=== PATIENT | male | born 1940 | race Caucasian/White ===

== ENCOUNTER 2022-05-18 10:16 | Emergency (ER) | payer MEDICARE, BC ==
[2022-05-18 11:20] LABS: #Eosinphils 0.3 10x3/uL (0.0-0.5); #Monocytes 0.6 10x3/uL (0.0-1.1); #Neutrophils 3.5 10x3/uL (1.5-8.4); %Basophils 0.7 % (0.0-2.0); %Eosinophils 4.9 % (0.0-6.0); %Lymphocytes 19.2 % (18.0-47.0); %Monocytes 11.5 % (0.0-10.0); %Neutrophils 63.3 % (40.0-75.0); Hemoglobin 13.1 g/dL (13.5-17.5); Mean Corpuscular Hemoglobin 32.3 pg (27.0-33.0); Mean Corpuscular Volume 94.8 fl (81.2-95.1); Mean Platelet Volume 8.8 fl (7.4-10.4); Platelet Count 187 10x3/uL (150-450); RBC Distribution Width 12.9 % (11.5-14.5); Red Blood Cell (RBC) Count 4.06 10x6/uL (4.32-5.72); White Blood Cell (WBC) Count 5.5 10x3/uL (3.5-10.5)
[2022-05-18 11:26] LABS: ALT (SGPT) 15 U/L (8-55); AST (SGOT) 26 U/L (5-34); Albumin 3.9 g/dL (3.4-4.8); Alkaline Phosphatase 64 U/L (40-110); Anion Gap 9 mmol/L (10-20); BUN (Urea Nitrogen) 11 mg/dL (8.4-25.7); Bilirubin, Total 0.8 mg/dL (0.2-1.2); CK (CPK) 187 U/L (30-200); Calc. Creatinine Clearance 0 mL/min (70-130); Carbon Dioxide 27 mmol/L (23-31); Chloride 103 mmol/L (98-107); Estimated GFR 80; Globulin 2.4 g/dL (2.4-3.5); Glucose 106 mg/dL (83-110); Lipase 6 U/L (8-78); Potassium 4.2 mmol/L (3.5-5.1); Protein, Total 6.3 g/dL (5.8-8.1); Sodium 135 mmol/L (136-145)
[2022-05-18 11:30] LABS: Bilirubin Neg (Negative); Blood, Urine 10 (Negative); Clarity Clear (Clear); Glucose, Urine (Dipstick) Normal (Negative); Ketone, Urine Negative (Negative); Leukocyte Negative (Negative); Nitrite Negative (Negative); Protein, Urine (Dipstick) 15 mg/dl (Neg-Trace); Specific Gravity, Urine 1.025 (1.002-1.036); Urobilinogen Normal mg/dL (Less than 2)
[2022-05-18 11:40] LABS: Bacteria/HPF None Seen HPF (None Seen); RBC/HPF 0-3 HPF (0-3); Squamous Epithelial None Seen HPF (0-3); WBC/HPF None Seen HPF (0-3)
== END 2022-05-18 13:09 | disposition home or self-care (01) ==
LOC: CSHERS 10:16
DX: E86.0 Dehydration (principal); E78.5 Hyperlipidemia, unspecified; Z79.899 Other long term (current) drug therapy
CPT/HCPCS: 74177; 80053; 81003; 81015; 82550; 83605; 83690; 85025; 93005

== ENCOUNTER 2023-08-21 09:14 | Inpatient (IN) | payer MEDICARE, BC ==
[2023-08-21] MEDS ORDERED: Ipratropium Bromide 2.5 ml Neb ONE ×2 (09:46→12:48)
[2023-08-21 09:48] LABS: #Monocytes 0.8 10x3/uL (0.0-1.1); #Neutrophils 6.8 10x3/uL (1.5-8.4); %Basophils 0.2 % (0.0-2.0); %Eosinophils 0.2 % (0.0-6.0); %Lymphocytes 4.9 % (18.0-47.0); %Monocytes 10.4 % (0.0-10.0); %Neutrophils 83.8 % (40.0-75.0); Hematocrit 34.6 % (38.8-50.0); Hemoglobin 12.2 g/dL (13.5-17.5); Mean Corpuscular HGB CONC 35.3 g/dL (32.0-36.0); Mean Corpuscular Hemoglobin 32.2 pg (27.0-33.0); Mean Corpuscular Volume 91.3 fl (81.2-95.1); Mean Platelet Volume 9.2 fl (7.4-10.4); Platelet Count 200 10x3/uL (150-450); RBC Distribution Width 12.9 % (11.5-14.5); Red Blood Cell (RBC) Count 3.79 10x6/uL (4.32-5.72); White Blood Cell (WBC) Count 8.1 10x3/uL (3.5-10.5)
[2023-08-21 10:00] LABS: ALT (SGPT) 22 U/L (8-55); AST (SGOT) 34 U/L (5-34); Albumin 3.9 g/dL (3.4-4.8); Alkaline Phosphatase 59 U/L (40-110); Anion Gap 14 mmol/L (10-20); BUN (Urea Nitrogen) 13 mg/dL (8.4-25.7); Bilirubin, Total 1.4 mg/dL (0.2-1.2); Calc. Creatinine Clearance 0 mL/min (70-130); Calcium 8.5 mg/dL (7.8-10.44); Carbon Dioxide 21 mmol/L (23-31); Chloride 93 mmol/L (98-107); Estimated GFR 87; Globulin 2.8 g/dL (2.4-3.5); Glucose 131 mg/dL (83-110); Potassium 4.2 mmol/L (3.5-5.1); Protein, Total 6.7 g/dL (5.8-8.1); Sodium 124 mmol/L (136-145)
[2023-08-21 10:04] LABS: Troponin I Less than 0.010 ng/mL (< 0.028)
[2023-08-21] MEDS ORDERED: cefTRIAXone (ROCEPHIN) 1 GM VIAL ONE (10:35)
[2023-08-21] MEDS ORDERED: Furosemide 40 MG/4 ML VIAL ONE (10:41)
[2023-08-21] MEDS ORDERED: Ondansetron ODT 4 MG TAB PO PRN (12:24)
[2023-08-21 12:25] LABS: Magnesium 1.5 mg/dL (1.6-2.6)
[2023-08-21] MEDS ORDERED: Azithromycin 500 MG in Sodium Chloride 0.9% 250 ML 250 ML IVPB SCH (12:30)
[2023-08-21] MEDS ORDERED: Magnesium 2 GM/50 ML(in water) 2 GM in Premix 1 BAG IVPB SCH (12:45)
[2023-08-21] MEDS ORDERED: Ondansetron PF 4 MG/2 ML Vial IVP PRN (13:46)
[2023-08-21] MEDS ORDERED: Ondansetron PF 4 MG/2 ML Vial ONE (13:48)
[2023-08-21] MEDS ORDERED: FLU VACC QS2023(65UP)/MF59C/PF 60 MCG/0.5 ML SYRINGE IM ONE (15:00)
[2023-08-21] MEDS ORDERED: Magnesium 2 GM/50 ML BAG (IN WATER) ONE (15:58)
[2023-08-21 16:18] LABS: Anion Gap 13 mmol/L (10-20); BUN (Urea Nitrogen) 13 mg/dL (8.4-25.7); Calc. Creatinine Clearance 74 mL/min (70-130); Calcium 8.6 mg/dL (7.8-10.44); Carbon Dioxide 25 mmol/L (23-31); Chloride 90 mmol/L (98-107); Estimated GFR 86; Glucose 138 mg/dL (83-110); Potassium 3.6 mmol/L (3.5-5.1); Sodium 124 mmol/L (136-145)
[2023-08-21 16:18] LABS: SARS-CoV-2 NAA Rapid Test Not Detected (NotDetected)
[2023-08-21] MEDS ORDERED: Acetaminophen 325 MG TAB ONE (16:26)
[2023-08-21] MEDS: Acetaminophen 325 MG TAB PO PRN (16:29)
[2023-08-21] MEDS ORDERED: Sodium Chloride 0.9% 1,000 ML IV SCH (16:45)
[2023-08-21 17:44] LABS: Bilirubin Neg (Negative); Blood, Urine Negative (Negative); Clarity Clear (Clear); Glucose, Urine (Dipstick) Normal (Negative); Ketone, Urine Negative (Negative); Leukocyte Negative (Negative); Nitrite Negative (Negative); Protein, Urine (Dipstick) Negative (Neg-Trace); Urobilinogen Normal mg/dL (Less than 2)
[2023-08-21 18:16] LABS: Bacteria/HPF Rare-Few HPF (None Seen); CAUTI Indications for Culture Fever or rigors; RBC/HPF None Seen HPF (0-3); Squamous Epithelial None Seen HPF (0-3); WBC/HPF 0-3 HPF (0-3)
[2023-08-21 18:17] LABS: Urine Culture Reflex No No
[2023-08-21] MEDS ORDERED: Azithromycin 500 MG VIAL ONE (18:20)
[2023-08-21] MEDS: Azithromycin 500 MG in Sodium Chloride 0.9% 250 ML 250 ML IVPB SCH (18:26)
[2023-08-21] MEDS: Famotidine 20 MG TAB PO SCH (20:53)
[2023-08-22 04:57] LABS: #Eosinphils 0.1 10x3/uL (0.0-0.5); #Neutrophils 5.1 10x3/uL (1.5-8.4); %Basophils 0.1 % (0.0-2.0); %Eosinophils 1.4 % (0.0-6.0); %Lymphocytes 9.4 % (18.0-47.0); %Monocytes 14.3 % (0.0-10.0); %Neutrophils 74.4 % (40.0-75.0); Hematocrit 32.5 % (38.8-50.0); Hemoglobin 11.5 g/dL (13.5-17.5); Mean Corpuscular HGB CONC 35.4 g/dL (32.0-36.0); Mean Corpuscular Hemoglobin 31.9 pg (27.0-33.0); Mean Platelet Volume 9.4 fl (7.4-10.4); Platelet Count 204 10x3/uL (150-450); RBC Distribution Width 12.7 % (11.5-14.5); Red Blood Cell (RBC) Count 3.61 10x6/uL (4.32-5.72); White Blood Cell (WBC) Count 6.9 10x3/uL (3.5-10.5)
[2023-08-22 05:02] LABS: Anion Gap 11 mmol/L (10-20); BUN (Urea Nitrogen) 15 mg/dL (8.4-25.7); Calc. Creatinine Clearance 74 mL/min (70-130); Calcium 8.4 mg/dL (7.8-10.44); Carbon Dioxide 28 mmol/L (23-31); Cardiac Risk 2.6 (Less than 4.5); Chloride 91 mmol/L (98-107); Cholesterol 113 mg/dl (< 200 Desired); Estimated GFR 87; Glucose 114 mg/dL (83-110); HDL Cholesterol 44 mg/dL (>60 Neg Risk); LDL Cholesterol, Calculated 58 mg/dL; Magnesium 1.9 mg/dL (1.6-2.6); Sodium 126 mmol/L (136-145); Triglycerides 54 mg/dL (Less than 150)
[2023-08-22] MEDS: Famotidine 20 MG TAB PO SCH ×2 (08:58→20:48)
[2023-08-22] MEDS: cefTRIAXone\\ROCEPHIN 1 GM in Sodium Chloride 0.9% 100 ML IVPB SCH (11:30)
[2023-08-22] MEDS: Furosemide 20 MG/2 ML VIAL SLOW IVP SCH (15:15)
[2023-08-22] MEDS: Azithromycin 500 MG in Sodium Chloride 0.9% 250 ML 250 ML IVPB SCH (18:17)
[2023-08-22] MEDS: Ipratropium/Albuterol 3 ML NEB NEB PRN ×2 (18:35→22:49)
[2023-08-22] MEDS ORDERED: Furosemide 20 MG/2 ML VIAL SLOW IVP SCH (19:00)
[2023-08-22] MEDS: Amiodarone 200 MG TAB PO SCH (20:48)
[2023-08-22] MEDS: Apixaban 5 MG TAB PO SCH (20:48)
[2023-08-22] MEDS: Atorvastatin Calcium 10 MG TAB PO SCH (20:48)
[2023-08-22] MEDS: Carvedilol 25 MG TAB PO SCH (20:48)
[2023-08-23] MEDS: Acetaminophen 325 MG TAB PO PRN (00:38)
[2023-08-23 03:57] LABS: #Monocytes 0.9 10x3/uL (0.0-1.1); #Neutrophils 6.5 10x3/uL (1.5-8.4); %Basophils 0.4 % (0.0-2.0); %Eosinophils 0.3 % (0.0-6.0); %Lymphocytes 5.8 % (18.0-47.0); %Monocytes 11.3 % (0.0-10.0); %Neutrophils 81.7 % (40.0-75.0); Hematocrit 31.7 % (38.8-50.0); Hemoglobin 11.2 g/dL (13.5-17.5); Mean Corpuscular HGB CONC 35.3 g/dL (32.0-36.0); Mean Corpuscular Hemoglobin 31.2 pg (27.0-33.0); Mean Corpuscular Volume 88.3 fl (81.2-95.1); Platelet Count 201 10x3/uL (150-450); RBC Distribution Width 12.5 % (11.5-14.5); Red Blood Cell (RBC) Count 3.59 10x6/uL (4.32-5.72); White Blood Cell (WBC) Count 7.9 10x3/uL (3.5-10.5)
[2023-08-23 03:58] LABS: Anion Gap 15 mmol/L (10-20); BUN (Urea Nitrogen) 15 mg/dL (8.4-25.7); Calc. Creatinine Clearance 78 mL/min (70-130); Calcium 8.2 mg/dL (7.8-10.44); Carbon Dioxide 25 mmol/L (23-31); Chloride 86 mmol/L (98-107); Estimated GFR 88; Glucose 126 mg/dL (83-110); Potassium 3.5 mmol/L (3.5-5.1); Sodium 122 mmol/L (136-145)
[2023-08-23] MEDS: Furosemide 20 MG/2 ML VIAL SLOW IVP SCH (06:04)
[2023-08-23] MEDS: Ipratropium/Albuterol 3 ML NEB NEB PRN ×2 (06:50→22:15)
[2023-08-23] MEDS: Apixaban 5 MG TAB PO SCH ×2 (08:16→21:26)
[2023-08-23] MEDS: Empagliflozin 10 MG TAB PO SCH (08:17)
[2023-08-23] MEDS: Carvedilol 25 MG TAB PO SCH ×2 (08:17→21:26)
[2023-08-23] MEDS: Famotidine 20 MG TAB PO SCH ×2 (08:17→21:27)
[2023-08-23] MEDS ORDERED: Tolvaptan 15 MG TAB PO SCH (09:00)
[2023-08-23] MEDS ORDERED: Lisinopril 5 MG TAB PO SCH (09:00)
[2023-08-23] MEDS ORDERED: Valsartan 80 MG TAB PO SCH (09:00)
[2023-08-23] MEDS ORDERED: Sacubitril 24MG/Valsartan 26 MG TAB PO SCH (09:00)
[2023-08-23] MEDS: Sodium Chloride 1 GM TAB PO SCH ×3 (09:54→21:27)
[2023-08-23] MEDS: Spironolactone 25 MG TAB PO SCH (09:54)
[2023-08-23] MEDS: cefTRIAXone\\ROCEPHIN 1 GM in Sodium Chloride 0.9% 100 ML IVPB SCH (11:03)
[2023-08-23] MEDS: Furosemide 40 MG/4 ML VIAL SLOW IVP SCH (15:07)
[2023-08-23 15:22] LABS: Sodium 126 mmol/L (136-145)
[2023-08-23] MEDS: Azithromycin 500 MG in Sodium Chloride 0.9% 250 ML 250 ML IVPB SCH (18:41)
[2023-08-23 21:24] LABS: Sodium 133 mmol/L (136-145)
[2023-08-23] MEDS: Sacubitril 49 MG/Valsartan 51 MG TABLET PO SCH (21:26)
[2023-08-23] MEDS: Atorvastatin Calcium 10 MG TAB PO SCH (21:26)
[2023-08-23] MEDS: Amiodarone 200 MG TAB PO SCH (21:27)
[2023-08-24 03:46] LABS: Anion Gap 13 mmol/L (10-20); BUN (Urea Nitrogen) 25 mg/dL (8.4-25.7); Calc. Creatinine Clearance 72 mL/min (70-130); Calcium 8.7 mg/dL (7.8-10.44); Carbon Dioxide 29 mmol/L (23-31); Chloride 93 mmol/L (98-107); Estimated GFR 85; Glucose 113 mg/dL (83-110); Potassium 3.9 mmol/L (3.5-5.1); Sodium 131 mmol/L (136-145)
[2023-08-24 04:01] LABS: #Eosinphils 0.1 10x3/uL (0.0-0.5); #Monocytes 1.1 10x3/uL (0.0-1.1); #Neutrophils 6.4 10x3/uL (1.5-8.4); %Basophils 0.5 % (0.0-2.0); %Eosinophils 1.5 % (0.0-6.0); %Lymphocytes 5.9 % (18.0-47.0); %Monocytes 13.7 % (0.0-10.0); %Neutrophils 78.2 % (40.0-75.0); Hematocrit 36.4 % (38.8-50.0); Hemoglobin 12.6 g/dL (13.5-17.5); Mean Corpuscular HGB CONC 34.6 g/dL (32.0-36.0); Mean Corpuscular Hemoglobin 30.9 pg (27.0-33.0); Mean Corpuscular Volume 89.2 fl (81.2-95.1); Mean Platelet Volume 9.3 fl (7.4-10.4); Platelet Count 279 10x3/uL (150-450); RBC Distribution Width 12.8 % (11.5-14.5); Red Blood Cell (RBC) Count 4.08 10x6/uL (4.32-5.72); White Blood Cell (WBC) Count 8.1 10x3/uL (3.5-10.5)
[2023-08-24] MEDS: Furosemide 40 MG/4 ML VIAL SLOW IVP SCH ×2 (06:11→15:00)
[2023-08-24 09:18] LABS: Sodium 132 mmol/L (136-145)
[2023-08-24] MEDS: Famotidine 20 MG TAB PO SCH ×2 (10:13→23:22)
[2023-08-24] MEDS: Apixaban 5 MG TAB PO SCH ×2 (10:13→23:22)
[2023-08-24] MEDS: Carvedilol 25 MG TAB PO SCH ×2 (10:14→23:23)
[2023-08-24] MEDS: Empagliflozin 10 MG TAB PO SCH (10:14)
[2023-08-24] MEDS: Sacubitril 49 MG/Valsartan 51 MG TABLET PO SCH ×2 (10:15→23:22)
[2023-08-24] MEDS: Sodium Chloride 1 GM TAB PO SCH ×3 (10:15→23:22)
[2023-08-24] MEDS: cefTRIAXone\\ROCEPHIN 1 GM in Sodium Chloride 0.9% 100 ML IVPB SCH (10:15)
[2023-08-24] MEDS: Azithromycin 500 MG in Sodium Chloride 0.9% 250 ML 250 ML IVPB SCH (17:50)
[2023-08-24] MEDS ORDERED: Mineral Oil ENEMA PR SCH (20:30)
[2023-08-24] MEDS: Amiodarone 200 MG TAB PO SCH (23:22)
[2023-08-24] MEDS: Atorvastatin Calcium 10 MG TAB PO SCH (23:22)
[2023-08-24] MEDS ORDERED: Melatonin 3 MG TAB PO SCH (23:59)
[2023-08-25 04:27] LABS: Anion Gap 16 mmol/L (10-20); BUN (Urea Nitrogen) 38 mg/dL (8.4-25.7); Calc. Creatinine Clearance 44 mL/min (70-130); Calcium 8.7 mg/dL (7.8-10.44); Carbon Dioxide 28 mmol/L (23-31); Chloride 95 mmol/L (98-107); Estimated GFR 51; Glucose 110 mg/dL (83-110); Potassium 3.6 mmol/L (3.5-5.1); Sodium 135 mmol/L (136-145)
[2023-08-25 04:31] LABS: #Basophils 0.1 10x3/uL (0.0-0.2); #Eosinphils 0.3 10x3/uL (0.0-0.5); #Monocytes 1.2 10x3/uL (0.0-1.1); #Neutrophils 4.8 10x3/uL (1.5-8.4); %Basophils 0.8 % (0.0-2.0); %Eosinophils 3.5 % (0.0-6.0); %Lymphocytes 10.9 % (18.0-47.0); %Monocytes 16.7 % (0.0-10.0); Hematocrit 35.8 % (38.8-50.0); Hemoglobin 12.4 g/dL (13.5-17.5); Mean Corpuscular HGB CONC 34.6 g/dL (32.0-36.0); Mean Corpuscular Hemoglobin 31.6 pg (27.0-33.0); Mean Corpuscular Volume 91.1 fl (81.2-95.1); Platelet Count 284 10x3/uL (150-450); Red Blood Cell (RBC) Count 3.93 10x6/uL (4.32-5.72); White Blood Cell (WBC) Count 7.1 10x3/uL (3.5-10.5)
[2023-08-25] MEDS: Furosemide 40 MG/4 ML VIAL SLOW IVP SCH (06:30)
[2023-08-25] MEDS ORDERED: Furosemide 40 MG/4 ML VIAL SLOW IVP SCH (08:39)
[2023-08-25] MEDS ORDERED: Furosemide 20 MG/2 ML VIAL SLOW IVP SCH (09:00)
[2023-08-25] MEDS: Sacubitril 49 MG/Valsartan 51 MG TABLET PO SCH ×2 (09:55→20:56)
[2023-08-25] MEDS: Empagliflozin 10 MG TAB PO SCH (09:55)
[2023-08-25] MEDS: Carvedilol 25 MG TAB PO SCH ×2 (09:56→20:12)
[2023-08-25] MEDS: Sodium Chloride 1 GM TAB PO SCH ×3 (09:56→20:12)
[2023-08-25] MEDS: Apixaban 5 MG TAB PO SCH ×2 (09:57→20:12)
[2023-08-25] MEDS: cefTRIAXone\\ROCEPHIN 1 GM in Sodium Chloride 0.9% 100 ML IVPB SCH (10:00)
[2023-08-25] MEDS: Azithromycin 500 MG in Sodium Chloride 0.9% 250 ML 250 ML IVPB SCH (18:48)
[2023-08-25] MEDS: Polyvinyl Alcohol 1.4%/Povidone 0.6% Opth Drops EA EYE SCH (20:12)
[2023-08-25] MEDS: Famotidine 20 MG TAB PO SCH (20:12)
[2023-08-25] MEDS: Atorvastatin Calcium 10 MG TAB PO SCH (20:12)
[2023-08-25] MEDS: Amiodarone 200 MG TAB PO SCH (20:12)
[2023-08-26] MEDS: Polyvinyl Alcohol 1.4%/Povidone 0.6% Opth Drops EA EYE SCH ×4 (00:04→18:38)
[2023-08-26] MEDS ORDERED: Melatonin 3 MG TAB PO SCH (01:45)
[2023-08-26 04:30] LABS: Anion Gap 16 mmol/L (10-20); BUN (Urea Nitrogen) 38 mg/dL (8.4-25.7); Calc. Creatinine Clearance 48 mL/min (70-130); Calcium 8.6 mg/dL (7.8-10.44); Carbon Dioxide 26 mmol/L (23-31); Chloride 94 mmol/L (98-107); Estimated GFR 56; Glucose 110 mg/dL (83-110); Potassium 3.6 mmol/L (3.5-5.1); Sodium 132 mmol/L (136-145)
[2023-08-26 04:33] LABS: #Basophils 0.1 10x3/uL (0.0-0.2); #Eosinphils 0.4 10x3/uL (0.0-0.5); #Monocytes 1.1 10x3/uL (0.0-1.1); #Neutrophils 5.4 10x3/uL (1.5-8.4); %Eosinophils 4.7 % (0.0-6.0); %Lymphocytes 11.1 % (18.0-47.0); %Monocytes 13.6 % (0.0-10.0); %Neutrophils 69.2 % (40.0-75.0); Hematocrit 35.5 % (38.8-50.0); Hemoglobin 12.4 g/dL (13.5-17.5); Mean Corpuscular HGB CONC 34.9 g/dL (32.0-36.0); Mean Corpuscular Hemoglobin 31.8 pg (27.0-33.0); Mean Platelet Volume 8.8 fl (7.4-10.4); Platelet Count 312 10x3/uL (150-450); White Blood Cell (WBC) Count 7.9 10x3/uL (3.5-10.5)
[2023-08-26] MEDS ORDERED: Polyethylene Glycol 3350 17 GM Packet PO SCH (05:30)
[2023-08-26] MEDS ORDERED: Senokot 8.6 MG TAB PO SCH (05:30)
[2023-08-26] MEDS: Mineral Oil ENEMA PR SCH ×2 (05:55→09:20)
[2023-08-26] MEDS: Carvedilol 25 MG TAB PO SCH ×2 (09:10→20:48)
[2023-08-26] MEDS: Apixaban 5 MG TAB PO SCH ×2 (09:10→20:48)
[2023-08-26] MEDS: Empagliflozin 10 MG TAB PO SCH (09:11)
[2023-08-26] MEDS: Sacubitril 49 MG/Valsartan 51 MG TABLET PO SCH ×2 (09:11→21:04)
[2023-08-26] MEDS: Sodium Chloride 1 GM TAB PO SCH ×3 (09:11→21:04)
[2023-08-26] MEDS: Furosemide 20 MG TAB PO SCH (09:11)
[2023-08-26] MEDS: cefTRIAXone\\ROCEPHIN 1 GM in Sodium Chloride 0.9% 100 ML IVPB SCH (11:26)
[2023-08-26] MEDS: Azithromycin 500 MG in Sodium Chloride 0.9% 250 ML 250 ML IVPB SCH (18:36)
[2023-08-26] MEDS: Amiodarone 200 MG TAB PO SCH (20:48)
[2023-08-26] MEDS: Famotidine 20 MG TAB PO SCH (20:48)
[2023-08-26] MEDS: Atorvastatin Calcium 10 MG TAB PO SCH (20:48)
[2023-08-26] MEDS: Acetaminophen 325 MG TAB PO PRN (21:02)
[2023-08-27] MEDS: Polyvinyl Alcohol 1.4%/Povidone 0.6% Opth Drops EA EYE SCH ×3 (00:18→11:52)
[2023-08-27] MEDS: Acetaminophen 325 MG TAB PO PRN (04:28)
[2023-08-27 04:33] LABS: #Basophils 0.1 10x3/uL (0.0-0.2); #Eosinphils 0.3 10x3/uL (0.0-0.5); #Monocytes 0.8 10x3/uL (0.0-1.1); #Neutrophils 3.8 10x3/uL (1.5-8.4); %Eosinophils 5.6 % (0.0-6.0); %Lymphocytes 13.3 % (18.0-47.0); %Monocytes 14.2 % (0.0-10.0); %Neutrophils 65.6 % (40.0-75.0); Mean Corpuscular HGB CONC 34.3 g/dL (32.0-36.0); Mean Corpuscular Hemoglobin 31.3 pg (27.0-33.0); Mean Corpuscular Volume 91.4 fl (81.2-95.1); Mean Platelet Volume 8.9 fl (7.4-10.4); Platelet Count 274 10x3/uL (150-450); RBC Distribution Width 13.2 % (11.5-14.5); Red Blood Cell (RBC) Count 3.83 10x6/uL (4.32-5.72); White Blood Cell (WBC) Count 5.9 10x3/uL (3.5-10.5)
[2023-08-27 04:53] LABS: Anion Gap 15 mmol/L (10-20); BUN (Urea Nitrogen) 27 mg/dL (8.4-25.7); Calc. Creatinine Clearance 58 mL/min (70-130); Calcium 8.5 mg/dL (7.8-10.44); Carbon Dioxide 22 mmol/L (23-31); Chloride 99 mmol/L (98-107); Estimated GFR 70; Glucose 110 mg/dL (83-110); Sodium 132 mmol/L (136-145)
[2023-08-27 04:59] VITALS: BMI 25.1
[2023-08-27] MEDS ORDERED: Polyethylene Glycol 3350 17 GM Packet PO SCH (09:00)
[2023-08-27] MEDS ORDERED: Famotidine 20 MG TAB PO SCH (09:00)
[2023-08-27] MEDS: Spironolactone 25 MG TAB PO SCH (09:07)
[2023-08-27] MEDS: Furosemide 20 MG TAB PO SCH (09:08)
[2023-08-27] MEDS: Carvedilol 25 MG TAB PO SCH (09:09)
[2023-08-27] MEDS: Apixaban 5 MG TAB PO SCH (09:09)
[2023-08-27] MEDS: Sodium Chloride 1 GM TAB PO SCH (09:10)
[2023-08-27] MEDS: Sacubitril 49 MG/Valsartan 51 MG TABLET PO SCH (09:11)
[2023-08-27] MEDS: Empagliflozin 10 MG TAB PO SCH (09:11)
[2023-08-27] MEDS: cefTRIAXone\\ROCEPHIN 1 GM in Sodium Chloride 0.9% 100 ML IVPB SCH (11:39)
[2023-08-27 12:40] VITALS: BP 92/57; TEMP 97.9
== END 2023-08-27 13:40 | DRG 177 ==
LOC: CSHERS 09:14 → CSHERHOLD 12:07 → CSHTELE 20:17 → OBSVTOIN 08-22 11:00
PROVIDERS: ADMIT Internal Medicine; ATTEND Internal Medicine
DX: J15.69 Pneumonia due to other Gram-negative bacteria (principal); I50.43 Acute on chronic combined systolic (congestive) and diastolic (congestive) heart failure; J96.01 Acute respiratory failure with hypoxia; E87.1 Hypo-osmolality and hyponatremia; I13.0 Hypertensive heart and chronic kidney disease with heart failure and stage 1 through stage 4 chronic kidney disease, or unspecified chronic kidney disease; N17.9 Acute kidney failure, unspecified; E78.5 Hyperlipidemia, unspecified; Z66 Do not resuscitate; Z88.2 Allergy status to sulfonamides; Z79.899 Other long term (current) drug therapy; Z79.01 Long term (current) use of anticoagulants; N40.0 Benign prostatic hyperplasia without lower urinary tract symptoms; Z98.890 Other specified postprocedural states; Z95.0 Presence of cardiac pacemaker; G89.29 Other chronic pain; M54.9 Dorsalgia, unspecified; Z90.89 Acquired absence of other organs; I48.0 Paroxysmal atrial fibrillation; N18.2 Chronic kidney disease, stage 2 (mild); D63.1 Anemia in chronic kidney disease; R41.0 Disorientation, unspecified; E86.1 Hypovolemia; Z20.822 Contact with and (suspected) exposure to COVID-19
CPT/HCPCS: 36415; 71045; 80048; 80053; 80061; 81001; 83605; 83735; 83880; 83930; 83935; 84300; 84443; 84484; 84550; 85025; 87040; 93005; 93010; 93306; 94640; 94760; 94762; 96365; 96366; 96375; 96376; G0378; J0456; J0696; J1940; J2405; J3475; J3490; J7050; J7611; J7620